=== PATIENT | male | born 1970 | race Caucasian/White ===

== ENCOUNTER 2017-04-16 08:09 | Emergency (ER) | payer MEDICAID | END 2017-04-16 08:36 | disposition left against medical advice (07) | LOC: ER 08:09 | DX: Z53.20 Procedure and treatment not carried out because of patient's decision for unspecified reasons (principal) ==

== ENCOUNTER 2017-05-08 19:31 | Emergency (ER) | payer MEDICAID ==
--- NOTE | 2017-05-08 19:45 | Emergency Department Record ---
History of Present Illness - General Chief Complaint: Headache Migraine Stated Complaint: MIGRAINE Time Seen by Provider: 05/08/17 19:40 Source: Patient Mode of Arrival: Ambulatory Limitations: No limitations - History of Present Illness Initial Comments: 46 yo male presents with a headache. He has a long history of migraines. This is similar to prior headaches. This migraines started yesterday. No vomiting. He is sound and light sensitive. He is vomiting that is not controlled with Zofran at home. He has follow up Friday with his neurologist. No new or atypical symptoms. MD Complaint: "Migraine" -: Days(s) (2) Onset Description: Gradual Location: Diffuse, Right Quality: Aching Consistency: Constant Improves With: Nothing Worsens With: Light, Noise Associated Symptoms: Nausea, Vomiting Treatments Prior to Arrival: Migraine medication - Related Data Allergies Allergy/AdvReac Type Severity Reaction Status Date / Time levetiracetam [From Keppra] Allergy Intermediate DIZZINESS Verified 08/24/15 23: 14 tramadol Allergy Intermediate PT UNSURE Verified 08/24/15 23:14 OF REACTION venlafaxine HCl Allergy Intermediate RAPID Verified 08/24/15 23:14 [From Effexor] HEART RATE ketorolac tromethamine AdvReac Intermediate NAUSEA Verified 08/24/15 23:14 [From Toradol] ropinirole HCl [From Requip] AdvReac Intermediate muscle Verified 08/24/15 23:14 twitches metoclopramide HCl AdvReac PT UNSURE Verified 08/24/15 23:14 [From Reglan] OF REACTION Review of Systems Constitutional: Denies: Chills, Fever, Weakness Eyes: Reports: Photophobia. Denies: Eye discharge, Eye pain, Vision change ENT: Denies: Congestion, Throat pain Respiratory: Denies: Cough, Dyspnea, Hemoptysis, Wheezes Cardiovascular: Denies: Chest pain, Syncope Endocrine: Denies: Fatigue Gastrointestinal: Reports: Nausea. Denies: Abdominal pain, Diarrhea, Vomiting Genitourinary: Denies: Dysuria, Frequency, Hematuria Musculoskeletal: Denies: Arthralgia, Back pain, Joint swelling, Myalgia, Neck pain Skin: Denies: Bruising, Change in color, Rash Neurological: Reports: Headache. Denies: Confusion, Numbness, Tremors, Vertigo , Weakness Psychiatric: Denies: Anxiety Hematological/Lymphatic: Denies: Blood Clots, Easy bleeding, Easy bruising, Swollen glands Past Medical History - SOCIAL HISTORY Smoking Status: Never smoker Drug Use: None - RESPIRATORY Hx Respiratory Disorders: No - CARDIOVASCULAR Hx Cardio Disorders: No Hx Hypertension: Yes - NEURO Hx Neuro Disorders: Yes Hx Headaches: Yes Hx Seizures: Yes (1 isolated episode in 2006) - GI Hx GI Disorders: No - Hx Genitourinary Disorders: No - ENDOCRINE Hx Endocrine Disorders: No - MUSCULOSKELETAL Hx Musculoskeletal Disorders: Yes Comment:: RLS - PSYCH Hx Psych Problems: Yes Hx Anxiety: Yes Hx Depression: Yes Comment:: Bipolar - HEMATOLOGY/ONCOLOGY Hx Hematology/Oncology Disorders: No Family Medical History Hx Anxiety: Brother/Sister Hx Cancer: Mother, Grandparents Hx Depression: Brother/Sister Hx HTN: Grandparents Physical Exam - General General Appearance: Alert, Oriented x3, Cooperative, No acute distress Limitations: No limitations - Head Head exam: Atraumatic, Normocephalic, Normal inspection - Eye Eye exam: Normal appearance, PERRL, EOMI. negative: Conjunctival injection, Scleral icterus - ENT ENT exam: Normal exam, Mucous membranes moist, Normal orophraynx Ear exam: Normal external inspection Nasal Exam: Normal inspection Mouth exam: Normal external inspection Teeth exam: Normal inspection Throat exam: Normal inspection. negative: Tonsillar erythema, Tonsillomegaly, Tonsillar exudate, R peritonsillar mass, L peritonsillar mass - Neck Neck exam: Normal inspection, Full ROM. negative: Meningismus - Respiratory Respiratory exam: Normal lung sounds bilaterally. negative: Respiratory distress - Cardiovascular Cardiovascular Exam: Regular rate, Normal rhythm, Normal heart sounds Peripheral Pulses: 2+: Radial (R), Radial (L) - GI/Abdominal GI/Abdominal exam: Soft. negative: Tenderness - Rectal Rectal exam: Deferred - exam: Deferred - Extremities Extremities exam: Normal inspection, Full ROM, Normal capillary refill. negative: Tenderness - Back Back exam: Reports: Normal inspection, Full ROM. Denies: CVA tenderness (R), CVA tenderness (L), Muscle spasm, Paraspinal tenderness, Rash noted, Tenderness , Vertebral tenderness - Neurological Neurological exam: Alert, CN II-XII intact, Normal gait, Oriented X3. negative : Motor sensory deficit - Psychiatric Psychiatric exam: Normal affect, Normal mood. negative: Agitated, Anxious - Skin Skin exam: Dry, Intact, Normal color, Warm Course - Reevaluation(s) Reevaluation #1: 05/08/17 20:28 On recheck the patient feels complete relief and reports he is ready for discharge. He has close follow up with an appointment Friday. Disposition Disposition: Discharge Clinical Impression: Migraine Condition: (1) Good Instructions: Migraine Headache (ED) Additional Instructions: Follow up as scheduled on Friday with your neurologist Return if you have any return of symptoms or concerns Forms: Patient Portal Access Time of Disposition: 20:29 Quality - Quality Measures Quality Measures: N/A - Blood Pressure Screening Does Patient Have Any of the Following: No Blood Pressure Classification: Hypertensive Reading Systolic Measurement: 146 Diastolic Measurement: 104 Screening for High Blood Pressure: < Pre-Hypertensive BP, F/U Documented > [ G8950] Pre-Hypertensive Follow-up Interventions: Referral to alternative/primary care provider.
[2017-05-08] MEDS ORDERED: DIPHENHYDRAMINE HCL IV 50 MG/ML VIAL IVP ONE (19:51)
[2017-05-08] MEDS ORDERED: PROMETHAZINE HCL 25 MG/ML VIAL IVP ONE (19:51)
[2017-05-08] MEDS ORDERED: 0.9 % SODIUM CHLORIDE 1,000 ML BAG IV ONE (19:51)
[2017-05-08] MEDS: KETOROLAC 30 MG/ML VIAL IVP ONE ×2 (19:57→20:10)
== END 2017-05-08 20:34 | disposition home or self-care (01) ==
LOC: ER 19:31
DX: G43.909 Migraine, unspecified, not intractable, without status migrainosus (principal); R11.2 Nausea with vomiting, unspecified; I10 Essential (primary) hypertension
CPT/HCPCS: 96374; 96375; 99284; J1200; J1885; J2550; J7030

== ENCOUNTER 2017-07-10 00:20 | Emergency (ER) | payer MEDICAID ==
--- NOTE | 2017-07-10 00:37 | Emergency Department Record ---
Anxiety - General Chief Complaint: General Stated Complaint: YELLING,SCREAMING OUTBURTS, ON AMBIEN X3 DAYS Time Seen by Provider: 07/10/17 00:27 Source: Patient, Family (patient's ) Mode of Arrival: Ambulatory Limitations: No limitations - History of Present Illness Initial Comments: 46 yo male presents to ED for evaluation of increased anxiety, yelling, and not acting like himself. Patient's reports that he was started on Ambien 3 days ago by his psychiatrist Dr. Lawrence, and his is concerned about his lack of sleep and history of Bipolar disorder. Patient denies any SI/HI on examination, states he just feels out of control tonight but is currently resting calmly. Patient denies headache, fevers, chills, or other recent illness. MD Complaint: Anxiety Onset/Timin -: Days(s) Place: Home Previous History of Same: No Severity: Moderate Quality: Intermittant Provoking factors: Medication change Improves With: Nothing Worsens With: Nothing Associated symptoms: Denies other symptoms - Related Data Allergies/Adverse Reactions: Allergies Allergy/AdvReac Type Severity Reaction Status Date / Time levetiracetam [From Keppra] Allergy Intermediate DIZZINESS Verified 08/24/15 23: 14 tramadol Allergy Intermediate PT UNSURE Verified 08/24/15 23:14 OF REACTION venlafaxine HCl Allergy Intermediate RAPID Verified 08/24/15 23:14 [From Effexor] HEART RATE ketorolac tromethamine AdvReac Intermediate NAUSEA Verified 08/24/15 23:14 [From Toradol] ropinirole HCl [From Requip] AdvReac Intermediate muscle Verified 08/24/15 23:14 twitches metoclopramide HCl AdvReac PT UNSURE Verified 08/24/15 23:14 [From Reglan] OF REACTION Travel Screening - Travel/Exposure Within Last 30 Days Have you traveled within the last 30 days?: No - Travel/Exposure Within Last Year Have you traveled outside the [place] in the last year?: No - Additonal Travel Details Have you been exposed to anyone with a communicable illness?: No - Travel Symptoms Symptom Screening: None Review of Systems Constitutional: Denies: Chills, Fever, Malaise, Night sweats Eyes: Denies: Eye discharge, Eye pain ENT: Denies: Congestion, Ear pain, Epistaxis Respiratory: Denies: Cough, Dyspnea Cardiovascular: Denies: Chest pain, Dyspnea on exertion Endocrine: Denies: Fatigue, Heat or cold intolerance Gastrointestinal: Denies: Abdominal pain, Nausea, Vomiting Genitourinary: Denies: Incontinence, Retention Musculoskeletal: Denies: Arthralgia, Back pain, Gout, Joint swelling Skin: Denies: Bruising, Change in color Neurological: Denies: Abnormal gait, Confusion, Headache, Seizure Psychiatric: Denies: Anxiety Hematological/Lymphatic: Denies: Anemia, Blood Clots Past Medical History - SOCIAL HISTORY Smoking Status: Never smoker Alcohol Use: None Drug Use: None - RESPIRATORY Hx Respiratory Disorders: No - CARDIOVASCULAR Hx Cardio Disorders: No Hx Hypertension: Yes - NEURO Hx Neuro Disorders: Yes Hx Headaches: Yes Hx Seizures: Yes (1 isolated episode in 2005) - GI Hx GI Disorders: No - Hx Genitourinary Disorders: No - ENDOCRINE Hx Endocrine Disorders: No - MUSCULOSKELETAL Hx Musculoskeletal Disorders: Yes Comment:: RLS - PSYCH Hx Psych Problems: Yes Hx Anxiety: Yes Hx Depression: Yes Comment:: Bipolar - HEMATOLOGY/ONCOLOGY Hx Hematology/Oncology Disorders: No Family Medical History Any Significant Family History?: Yes Hx Anxiety: Brother/Sister Hx Cancer: Mother, Grandparents Hx Depression: Brother/Sister Hx HTN: Grandparents Physical Exam - General General Appearance: Alert, Oriented x3, Cooperative, Anxious Limitations: No limitations - Head Head exam: Atraumatic, Normocephalic, Normal inspection Head exam detail: negative: Abrasion, Contusion, Arellano's sign, General tenderness, Hematoma, Laceration - Eye Eye exam: Normal appearance. negative: Conjunctival injection, Periorbital swelling, Periorbital tenderness, Scleral icterus - ENT Ear exam: negative: Auricular hematoma, Auricular trauma Nasal Exam: negative: Active bleeding, Discharge, Dried blood, Foreign body Mouth exam: negative: Drooling, Laceration, Muffled voice, Tongue elevation - Neck Neck exam: Normal inspection. negative: Meningismus, Tenderness - Respiratory Respiratory exam: Normal lung sounds bilaterally. negative: Rales, Respiratory distress, Rhonchi, Stridor - Cardiovascular Cardiovascular Exam: Regular rate, Normal rhythm, Normal heart sounds - GI/Abdominal GI/Abdominal exam: Soft. negative: Rebound, Rigid, Tenderness - Rectal Rectal exam: Deferred - exam: Deferred - Extremities Extremities exam: Normal inspection. negative: Calf tenderness, Pedal edema, Tenderness - Back Back exam: Denies: CVA tenderness (R), CVA tenderness (L) - Neurological Neurological exam: Alert, Normal gait, Oriented X3 - Psychiatric Psychiatric exam: Anxious. negative: Homicidal ideation, Suicidal ideation - Skin Skin exam: Normal color. negative: Abrasion Type of lesion: negative: abrasion Course Vital Signs 07/10/17 00:24 Temperature 97.4 F L Pulse Rate 77 Respiratory 24 Rate Blood Pressure 147/92 Pulse Ox 95 - Reevaluation(s) Reevaluation #1: 07/10/17 01:11 Labs reviewed and are grossly unremarkable for an acute process. UDS pending. Reevaluation #2: 07/10/17 01:49 UDS has resulted and appears negative. Patient reports that his anxiety symptoms are greatly improved and he appears stable for discharge at this time. Medical Decision Making - Lab Data Result diagrams: 07/10/17 00:45 07/10/17 00:45 Disposition Disposition: Discharge Clinical Impression: Adverse drug effect Qualifiers: Encounter type: initial encounter Qualified Code(s): T88.7XXA - Unspecified adverse effect of drug or medicament, initial encounter Disposition: Home, Self-Care Condition: (2) Stable Instructions: Adverse Drug Reaction (ED) Additional Instructions: Return to ED if your symptoms worsen or if you have any concerns. Call Dr. Lawrence tomorrow morning for further recommendations. Forms: Patient Portal Access Time of Disposition: 01:51 Quality - Quality Measures Quality Measures: N/A - Blood Pressure Screening Does Patient Have Any of the Following: No Blood Pressure Classification: Hypertensive Reading Systolic Measurement: 147 Diastolic Measurement: 92 Screening for High Blood Pressure: < First Hypertensive BP, F/U Documented > [ G8950] First Hypertensive Follow-up Interventions: Referral to alternative/primary care provider.
[2017-07-10 00:51] LABS: BASO % 0.7 % (0-6); EOS % 2.1 % (0-6); GRAN % 56.7 % (47-80); HEMATOCRIT 42.3 % (42.0-52.0); HEMOGLOBIN 15.1 gm/dl (14.0-18.0); LYMPH % 31.1 % (16-45); MEAN CELL VOLUME 83.9 fl (81-97); MEAN CORPUSCULAR HGB CONC 35.7 g/dl (32-36); MEAN PLATELET VOLUME 9.2 fl (7.4-10.4); MONO % 9.4 % (0-9); PLATELET COUNT 301 K/uL (130-400); RED BLOOD COUNT 5.04 M/uL (4.40-5.70); WHITE BLOOD COUNT W/O DIFF 8.9 K/uL (4.2-12.2)
[2017-07-10] MEDS: 0.9 % SODIUM CHLORIDE 1000ML 1,000 ML IV SCH (00:51)
[2017-07-10] MEDS: LORAZEPAM 2 MG/ML VIAL IV ONE (00:52)
[2017-07-10 01:07] LABS: ALB/GLOB RATIO 1.6 (1.1-1.8); ALBUMIN 4.6 g/dL (4.0-5.0); ALKALINE PHOSPHATASE 78 U/L (40-129); ALT/SGPT 49 U/L (<41); AST/SGOT 38 U/L (10.0-50.0); BLOOD UREA NITROGEN 14 mg/dL (6-20); CREATININE 1.3 mg/dL (0.7-1.2); EST GLOMERULAR FILTRATION RATE > 60 mL/min; GLUCOSE,RANDOM 89 mg/dL (74-109); TOTAL PROTEIN 7.5 g/dL (6.6-8.7)
[2017-07-10 01:44] LABS: AMPHETAMINE SCREEN URINE NOT DETECTED; BARBITURATE SCREEN URINE NOT DETECTED; BENZODIAZEPINE SCREEN URINE NOT DETECTED; COCAINE SCREEN URINE NOT DETECTED; METHADONE SCREEN URINE NOT DETECTED; METHAMPHETAMINE SCREEN NOT DETECTED; OPIATE SCREEN URINE NOT DETECTED; OXYCODONE SCREEN URINE NOT DETECTED; PHENCYCLIDINE SCREEN URINE NOT DETECTED; PROPOXYPHENE SCREEN URINE NOT DETECTED; THC SCREEN URINE NOT DETECTED; TRICYCLIC ANTIDEPRESSANT SCRN NOT DETECTED
[2017-07-10] MEDS: DIPHENHYDRAMINE HCL 25 MG CAPSULE PO ONE (01:57)
== END 2017-07-10 02:02 | disposition home or self-care (01) ==
LOC: ER 00:20
DX: T42.6X5A Adverse effect of other antiepileptic and sedative-hypnotic drugs, initial encounter (principal); Y92.009 Unspecified place in unspecified non-institutional (private) residence as the place of occurrence of the external cause; I10 Essential (primary) hypertension; F31.9 Bipolar disorder, unspecified
CPT/HCPCS: 80053; 80305; 85025; 96374; 99284; J7030

== ENCOUNTER 2018-08-14 07:07 | Emergency (ER) | payer MEDICAID ==
--- NOTE | 2018-08-14 07:26 | Emergency Department Record ---
History of Present Illness - General Chief Complaint: Headache Migraine Stated Complaint: MIGRAIN Source: Patient, Family Mode of Arrival: Ambulatory Limitations: No limitations - History of Present Illness Initial Comments: 47 yo male presents with a headache. He reports a long history of migraines. His migraines in the last year have been better. His last migraine was 3-4 months ago. This headache started last night like a typical migraine. He has noise sensitivity. He has nausea with vomiting. No fever. No trauma. No new or atypical symptoms from his normal migraines. MD Complaint: "Migraine" -: Hour(s) Onset Description: Gradual Location: Frontal Severity: Moderate Quality: Aching Consistency: Constant Improves With: Nothing Worsens With: Noise Context: Other Associated Symptoms: Nausea, Vomiting Other Symptoms: Other Treatments Prior to Arrival: Other - Related Data Allergies Allergy/AdvReac Type Severity Reaction Status Date / Time levetiracetam [From Keppra] Allergy Intermediate DIZZINESS Verified 08/14/18 07: 16 tramadol Allergy Intermediate PT UNSURE Verified 08/14/18 07:16 OF REACTION venlafaxine HCl Allergy Intermediate RAPID Verified 08/14/18 07:16 [From Effexor] HEART RATE ketorolac tromethamine AdvReac Intermediate NAUSEA Verified 08/14/18 07:16 [From Toradol] ropinirole HCl [From Requip] AdvReac Intermediate muscle Verified 08/14/18 07:16 twitches metoclopramide HCl AdvReac PT UNSURE Verified 08/14/18 07:16 [From Reglan] OF REACTION Review of Systems Constitutional: Denies: Chills, Fever, Malaise, Weakness Eyes: Denies: Eye discharge, Eye pain, Photophobia, Vision change ENT: Denies: Congestion, Throat pain Respiratory: Denies: Cough Cardiovascular: Denies: Chest pain, Palpitations, Syncope Endocrine: Denies: Fatigue Gastrointestinal: Reports: Nausea, Vomiting. Denies: Abdominal pain, Diarrhea Genitourinary: Denies: Dysuria, Frequency, Hematuria Musculoskeletal: Denies: Arthralgia, Back pain, Neck pain Skin: Denies: Bruising, Change in color, Rash Neurological: Reports: Headache. Denies: Abnormal gait, Confusion, Numbness, Paresthesias, Seizure, Tingling, Tremors, Vertigo, Weakness Psychiatric: Denies: Anxiety Hematological/Lymphatic: Denies: Easy bleeding, Easy bruising Past Medical History - SOCIAL HISTORY Smoking Status: Never smoker Drug Use: None - RESPIRATORY Hx Respiratory Disorders: No - CARDIOVASCULAR Hx Cardio Disorders: No Hx Hypertension: Yes - NEURO Hx Neuro Disorders: Yes Hx Headaches: Yes Hx Seizures: Yes (1 isolated episode in 2006) - GI Hx GI Disorders: No - Hx Genitourinary Disorders: No - ENDOCRINE Hx Endocrine Disorders: No - MUSCULOSKELETAL Hx Musculoskeletal Disorders: Yes Comment:: RLS - PSYCH Hx Psych Problems: Yes Hx Anxiety: Yes Hx Depression: Yes Comment:: Bipolar - HEMATOLOGY/ONCOLOGY Hx Hematology/Oncology Disorders: No Family Medical History Hx Anxiety: Brother/Sister Hx Cancer: Mother, Grandparents Hx Depression: Brother/Sister Hx HTN: Grandparents Physical Exam - General General Appearance: Alert, Oriented x3, Cooperative, No acute distress Limitations: No limitations - Head Head exam: Atraumatic, Normal inspection - Eye Eye exam: Normal appearance, PERRL. negative: Conjunctival injection, Scleral icterus - ENT ENT exam: Normal exam, Mucous membranes moist, Normal orophraynx Ear exam: Normal external inspection, External canal tenderness Mouth exam: Normal external inspection Teeth exam: Normal inspection Throat exam: Normal inspection - Neck Neck exam: Normal inspection, Full ROM. negative: Lymphadenopathy, Meningismus , Tenderness - Respiratory Respiratory exam: Normal lung sounds bilaterally. negative: Respiratory distress - Cardiovascular Cardiovascular Exam: Regular rate, Normal rhythm, Normal heart sounds - GI/Abdominal GI/Abdominal exam: Soft, Normal bowel sounds. negative: Tenderness - Rectal Rectal exam: Deferred - exam: Deferred - Extremities Extremities exam: Normal inspection. negative: Pedal edema, Tenderness - Back Back exam: Denies: CVA tenderness (R), CVA tenderness (L) - Neurological Neurological exam: Alert, CN II-XII intact, Motor sensory deficit, Normal gait, Oriented X3. negative: Abnormal gait, Altered - Psychiatric Psychiatric exam: Normal affect, Normal mood. negative: Agitated, Anxious - Skin Skin exam: Dry, Intact, Normal color, Warm Course - Reevaluation(s) Reevaluation #1: The toradol allergy was reviewed. No hives. He states he got nauseated once he thinks. He has had it multiple times in the past. 08/14/18 07:35 08/14/18 08:08 The patient is doing well and is comfortable with DC. Headache and nausea are well controlled and minimal We discussed at length reasons to immediately return to the ED as well as close follow up. Disposition Disposition: Discharge Clinical Impression: Migraine Disposition: Home, Self-Care Condition: (1) Good Instructions: Migraine Headache (ED) Additional Instructions: Call your doctor for the next available follow up appointment Return to the ER for a recheck if worse, any new concerns or questions Take the prescriptions provided as directed Review this ER visit and the tests performed with your family doctor Forms: Patient Portal Access Time of Disposition: 08:09 Quality - Quality Measures Quality Measures: N/A, Headache (All Ages) - Headache: Neuroimaging Quality Measure: Measure #419: Overuse of Neuroimaging ICD10 Codes Entered: Yes Neurological Exam: Patient had a normal neurological exam. [G9535] Headache: Use of Neuroimaging: < CTA, CT, MRA or MRI was NOT ordered > [G9534] - Blood Pressure Screening Does Patient Have Any of the Following: No Blood Pressure Classification: Hypertensive Reading Systolic Measurement: 127 Diastolic Measurement: 96 Screening for High Blood Pressure: < Pre-Hypertensive BP, F/U Documented > [ G8950] Pre-Hypertensive Follow-up Interventions: Referral to alternative/primary care provider.
[2018-08-14] MEDS ORDERED: PROMETHAZINE HCL 25 MG/ML VIAL IM ONE (07:30)
[2018-08-14] MEDS ORDERED: DIPHENHYDRAMINE HCL 25 MG CAPSULE PO ONE (07:30)
[2018-08-14] MEDS ORDERED: KETOROLAC 30 MG/ML VIAL IM ONE (07:30)
== END 2018-08-14 08:36 | disposition home or self-care (01) ==
LOC: ER 07:07
DX: G43.909 Migraine, unspecified, not intractable, without status migrainosus (principal); R11.2 Nausea with vomiting, unspecified; I10 Essential (primary) hypertension
CPT/HCPCS: 99283 ×2; 96372; J1885; J2550

== ENCOUNTER 2018-10-22 08:37 | Emergency (ER) | payer MEDICAID, OTHER ==
[2018-10-22] MEDS ORDERED: PROMETHAZINE HCL 25 MG/ML VIAL IM ONE (08:43)
[2018-10-22] MEDS ORDERED: KETOROLAC 30 MG/ML VIAL IM ONE (08:43)
--- NOTE | 2018-10-22 08:50 | Emergency Department Record ---
History of Present Illness - General Chief Complaint: Headache Migraine Stated Complaint: MIGRAIN DAY 4 Time Seen by Provider: 10/22/18 08:39 Source: Patient Mode of Arrival: Ambulatory Limitations: No limitations - History of Present Illness Initial Comments: 47 yo male presents with a headache. He has a history of migraines. He states this migraine started about 4 days ago. He has some sensitivity to light with nausea but no vomiting. The headache is right frontal similar in usual location. No fevers. No trauma. No new symptoms. No vision loss, speech changes, weakness, coordination changes. He has taken his medications without resolution at home. He follows closely with Dr Burns for his migraines trying new different outpatient treatments. 2019 has been better for the frequency of his migraines. He last saw a neurologist about 1.5 years ago. MD Complaint: "Migraine" -: Days(s) Onset Description: Gradual Location: Frontal Severity: Moderate Quality: Aching, Throbbing Consistency: Constant Improves With: Nothing Worsens With: Light, Noise Context: Other (Hx of migraines) Associated Symptoms: Nausea, Photophobia Other Symptoms: Other Treatments Prior to Arrival: Migraine medication - Related Data Previous Rx's Medication Instructions Recorded Ondansetron [Zofran Odt] 4 mg PO Q8H #20 tab.rapdis 10/22/18 Allergies Allergy/AdvReac Type Severity Reaction Status Date / Time levetiracetam [From Keppra] Allergy Intermediate DIZZINESS Verified 10/22/18 08:45 tramadol Allergy Intermediate PT UNSURE Verified 10/22/18 08:45 OF REACTION venlafaxine HCl Allergy Intermediate RAPID Verified 10/22/18 08:45 [From Effexor] HEART RATE ketorolac tromethamine AdvReac Intermediate NAUSEA Verified 10/22/18 08:45 [From Toradol] ropinirole HCl [From Requip] AdvReac Intermediate muscle Verified 10/22/18 08:45 twitches metoclopramide HCl AdvReac PT UNSURE Verified 10/22/18 08:45 [From Reglan] OF REACTION Review of Systems Constitutional: Denies: Chills, Fever, Malaise, Weakness Eyes: Reports: Photophobia. Denies: Eye discharge, Eye pain, Vision change ENT: Denies: Congestion, Throat pain Respiratory: Denies: Cough, Dyspnea Cardiovascular: Denies: Chest pain, Palpitations, Syncope Endocrine: Denies: Fatigue, Polydipsia, Polyuria Gastrointestinal: Reports: Nausea. Denies: Abdominal pain, Constipation, Diarrhea, Vomiting Genitourinary: Denies: Frequency, Hematuria Musculoskeletal: Denies: Arthralgia, Myalgia Skin: Denies: Bruising, Change in color, Rash Neurological: Reports: Headache. Denies: Abnormal gait, Confusion, Numbness, Paresthesias, Tingling, Tremors, Vertigo Psychiatric: Denies: Anxiety Hematological/Lymphatic: Denies: Easy bleeding, Easy bruising Past Medical History - SOCIAL HISTORY Smoking Status: Never smoker Drug Use: None - RESPIRATORY Hx Respiratory Disorders: No - CARDIOVASCULAR Hx Cardio Disorders: No Hx Hypertension: Yes - NEURO Hx Neuro Disorders: Yes Hx Headaches: Yes Hx Seizures: Yes (1 isolated episode in 2005) - GI Hx GI Disorders: No - Hx Genitourinary Disorders: No - ENDOCRINE Hx Endocrine Disorders: No - MUSCULOSKELETAL Hx Musculoskeletal Disorders: Yes Comment:: RLS - PSYCH Hx Psych Problems: Yes Hx Anxiety: Yes Hx Depression: Yes Comment:: Bipolar - HEMATOLOGY/ONCOLOGY Hx Hematology/Oncology Disorders: No Family Medical History Hx Anxiety: Brother/Sister Hx Cancer: Mother, Grandparents Hx Depression: Brother/Sister Hx HTN: Grandparents Physical Exam - General General Appearance: Alert, Oriented x3, Cooperative, No acute distress Limitations: No limitations - Head Head exam: Atraumatic, Normal inspection - Eye Eye exam: Normal appearance, PERRL, EOMI. negative: Conjunctival injection, Nystagmus, Periorbital swelling, Scleral icterus - ENT ENT exam: Normal exam, Mucous membranes moist, Normal orophraynx Ear exam: Normal external inspection Nasal Exam: Normal inspection Mouth exam: Normal external inspection Throat exam: Normal inspection - Neck Neck exam: Normal inspection. negative: Full ROM, Lymphadenopathy, Tenderness - Respiratory Respiratory exam: Normal lung sounds bilaterally. negative: Respiratory distress - Cardiovascular Cardiovascular Exam: Regular rate, Normal rhythm, Normal heart sounds - Rectal Rectal exam: Deferred - exam: Deferred - Extremities Extremities exam: Full ROM. negative: Pedal edema, Tenderness - Back Back exam: Reports: Full ROM - Neurological Neurological exam: Alert, CN II-XII intact, Normal gait, Oriented X3, Reflexes normal. negative: Abnormal gait, Altered, Motor sensory deficit - Psychiatric Psychiatric exam: Normal affect, Normal mood - Skin Skin exam: Dry, Intact, Normal color, Warm Course - Reevaluation(s) Reevaluation #1: 10/22/18 08:43 EMR reviewed Last migraine visit was in 10/22/18 09:26 The patient is doing well and is comfortable with DC. DC vitals were reviewed. We discussed at length reasons to immediately return to the ED as well as close follow up. Disposition Disposition: Discharge Clinical Impression: Migraine Disposition: Home, Self-Care Condition: (1) Good Instructions: Migraine Headache (ED) Additional Instructions: Call your doctor for the next available follow up appointment Review this ER visit and the tests performed with your family doctor Return to the ER for a recheck if worse, any new concerns or questions Take the prescriptions provided as directed Prescriptions: Ondansetron [Zofran Odt] 4 mg PO Q8H #20 tab.rapdis Forms: Patient Portal Access Quality - Quality Measures Quality Measures: N/A, Headache (All Ages) - Headache: Neuroimaging Quality Measure: Measure #419: Overuse of Neuroimaging ICD10 Codes Entered: Yes Neurological Exam: Patient had a normal neurological exam. [G9535] Headache: Use of Neuroimaging: < CTA, CT, MRA or MRI was NOT ordered > [G9534] - Blood Pressure Screening Does Patient Have Any of the Following: No Blood Pressure Classification: Hypertensive Reading Systolic Measurement: 129 Diastolic Measurement: 100 Screening for High Blood Pressure: < Pre-Hypertensive BP, F/U Documented > [G8950] Pre-Hypertensive Follow-up Interventions: Follow-up with rescreen every year., Referral to alternative/primary care provider.
[2018-10-22] MEDS ORDERED: DIPHENHYDRAMINE HCL 25 MG CAPSULE PO ONE (08:51)
== END 2018-10-22 09:30 | disposition home or self-care (01) ==
LOC: ER 08:37
DX: G43.909 Migraine, unspecified, not intractable, without status migrainosus (principal); R11.0 Nausea; H53.149 Visual discomfort, unspecified
CPT/HCPCS: 96372; 99283; J1885; J2550

== ENCOUNTER 2019-02-21 06:14 | Emergency (ER) | payer MEDICAID, OTHER ==
[2019-02-21] MEDS ORDERED: KETOROLAC 60 MG/2 ML VIAL IM STA (06:25)
[2019-02-21] MEDS ORDERED: PROMETHAZINE HCL 25 MG/ML VIAL IM ONE (06:25)
[2019-02-21] MEDS ORDERED: DIPHENHYDRAMINE HCL 50 MG/ML VIAL IM ONE (06:25)
--- NOTE | 2019-02-21 06:29 | Emergency Department Record ---
History of Present Illness - General Chief Complaint: Headache Migraine Stated Complaint: MIGRAINE Time Seen by Provider: 02/21/19 06:18 Source: Patient Mode of Arrival: Ambulatory Limitations: No limitations - History of Present Illness Initial Comments: 48 yo male presents to ED for evaluation of headache symptoms that began approximately 12 hours ago. Patient reports a history of similar symptoms, denies fevers, chills, or neck stiffness symptoms. Patient reports taking his normal headache abortive medications last evening without improvement. Patient does not take anticoagulation medications at his baseline. MD Complaint: Headache Onset/Timin -: Hour(s) Onset Description: Sudden Location: Facial, Retro-orbital, Right Severity scale (1-10): 6 Quality: Sharp, Similar to previous headaches Consistency: Constant Improves With: Nothing Worsens With: Noise Associated Symptoms: Photophobia Treatments Prior to Arrival: Migraine medication - Related Data Previous Rx's Medication Instructions Recorded Ondansetron [Zofran Odt] 4 mg PO Q8H #20 tab.rapdis 10/22/18 Allergies Allergy/AdvReac Type Severity Reaction Status Date / Time levetiracetam [From Keppra] Allergy Intermediate DIZZINESS Verified 10/22/18 08:45 tramadol Allergy Intermediate PT UNSURE Verified 10/22/18 08:45 OF REACTION venlafaxine HCl Allergy Intermediate RAPID Verified 10/22/18 08:45 [From Effexor] HEART RATE ketorolac tromethamine AdvReac Intermediate NAUSEA Verified 10/22/18 08:45 [From Toradol] ropinirole HCl [From Requip] AdvReac Intermediate muscle Verified 10/22/18 08:45 twitches metoclopramide HCl AdvReac PT UNSURE Verified 10/22/18 08:45 [From Reglan] OF REACTION Travel Screening - Travel/Exposure Within Last 30 Days Have you traveled within the last 30 days?: No - Travel/Exposure Within Last Year Have you traveled outside the [place] in the last year?: No - Additonal Travel Details Have you been exposed to anyone with a communicable illness?: No - Travel Symptoms Symptom Screening: None Review of Systems Constitutional: Denies: Chills, Fever, Malaise, Night sweats Eyes: Denies: Eye discharge, Eye pain ENT: Denies: Congestion, Ear pain, Epistaxis Respiratory: Denies: Cough, Dyspnea Cardiovascular: Denies: Chest pain, Dyspnea on exertion Endocrine: Denies: Fatigue, Heat or cold intolerance Gastrointestinal: Denies: Abdominal pain, Nausea, Vomiting Genitourinary: Denies: Incontinence, Retention Musculoskeletal: Denies: Arthralgia, Back pain Skin: Denies: Bruising, Change in color Neurological: Reports: Headache. Denies: Abnormal gait, Confusion, Seizure Psychiatric: Denies: Anxiety Hematological/Lymphatic: Denies: Anemia, Blood Clots Past Medical History - SOCIAL HISTORY Smoking Status: Never smoker Alcohol Use: None Drug Use: Heavy Drug Use Detail:: Marijuana - RESPIRATORY Hx Respiratory Disorders: No - CARDIOVASCULAR Hx Cardio Disorders: No Hx Hypertension: Yes - NEURO Hx Neuro Disorders: Yes Hx Headaches: Yes Hx Seizures: Yes (1 isolated episode in 2006) - GI Hx GI Disorders: No - Hx Genitourinary Disorders: No - ENDOCRINE Hx Endocrine Disorders: No - MUSCULOSKELETAL Hx Musculoskeletal Disorders: Yes Comment:: RLS - PSYCH Hx Psych Problems: Yes Hx Anxiety: Yes Hx Depression: Yes Comment:: Bipolar - HEMATOLOGY/ONCOLOGY Hx Hematology/Oncology Disorders: No Family Medical History Any Significant Family History?: Yes Hx Anxiety: Brother/Sister Hx Cancer: Mother, Grandparents Hx Depression: Brother/Sister Hx HTN: Grandparents Physical Exam - General General Appearance: Alert, Oriented x3, Cooperative, Mild distress, Other (Converational, well appearing on examination.) Limitations: No limitations - Head Head exam: Atraumatic, Normocephalic, Normal inspection Head exam detail: negative: Abrasion, Contusion, Arellano's sign, General tenderness, Hematoma, Laceration - Eye Eye exam: Normal appearance. negative: Conjunctival injection, Periorbital swelling, Periorbital tenderness, Scleral icterus - ENT Ear exam: negative: Auricular hematoma, Auricular trauma Nasal Exam: negative: Active bleeding, Discharge, Dried blood, Foreign body Mouth exam: negative: Drooling, Laceration, Muffled voice, Tongue elevation - Neck Neck exam: Normal inspection. negative: Meningismus, Tenderness - Respiratory Respiratory exam: Normal lung sounds bilaterally. negative: Rales, Respiratory distress, Rhonchi, Stridor - Cardiovascular Cardiovascular Exam: Regular rate, Normal rhythm, Normal heart sounds - GI/Abdominal GI/Abdominal exam: Soft. negative: Rebound, Rigid, Tenderness - Rectal Rectal exam: Deferred - exam: Deferred - Extremities Extremities exam: Normal inspection. negative: Pedal edema, Tenderness - Back Back exam: Denies: CVA tenderness (R), CVA tenderness (L) - Neurological Neurological exam: Alert, Normal gait, Oriented X3 - Psychiatric Psychiatric exam: Normal affect, Normal mood - Skin Skin exam: Normal color. negative: Abrasion Type of lesion: negative: abrasion Course Vital Signs 02/21/19 06:20 Temperature 97.9 F Pulse Rate [ 85 Pulse Ox Probe] Respiratory 20 Rate Blood Pressure 135/101 [Left Arm] Pulse Ox 95 - Reevaluation(s) Reevaluation #1: 02/21/19 07:02 Patient was reassessed, reports that he is feeling much improved. Patient appears stable for discharge at this time. Disposition Disposition: Discharge Clinical Impression: Acute headache Qualifiers: Headache type: unspecified Intractability: not intractable Qualified Code(s): R51 - Headache Disposition: Home, Self-Care Condition: (2) Stable Instructions: Acute Headache (ED) Additional Instructions: Return to ED if your symptoms worsen or if you have any concerns. Follow-up with your family doctor in 3-5 days as directed. Forms: Patient Portal Access Time of Disposition: 06:29 Quality - Quality Measures Quality Measures: N/A, Headache (All Ages) - Headache: Neuroimaging Quality Measure: Measure #419: Overuse of Neuroimaging ICD10 Codes Entered: Yes Neurological Exam: Patient had a normal neurological exam. [G9535] Headache: Use of Neuroimaging: < CTA, CT, MRA or MRI was NOT ordered > [G9534] - Blood Pressure Screening Does Patient Have Any of the Following: No Blood Pressure Classification: Hypertensive Reading Systolic Measurement: 135 Diastolic Measurement: 101 Screening for High Blood Pressure: < First Hypertensive BP, F/U Documented > [G8950] First Hypertensive Follow-up Interventions: Referral to alternative/primary care provider.
== END 2019-02-21 07:08 | disposition home or self-care (01) ==
LOC: ER 06:14
DX: R51 Headache (principal); H53.149 Visual discomfort, unspecified; I10 Essential (primary) hypertension; R42 Dizziness and giddiness
CPT/HCPCS: 96372; 99284; J1200; J1885; J2550